=== PATIENT | female | born 1975 | race Caucasian/White ===

== ENCOUNTER → 2019-07-30 | Outpatient (CLI) | payer OTHER ==
--- NOTE | 2019-07-30 09:16 | Diagnostic Imaging Report ---
PROCEDURE: MRI lumbar spine. TECHNIQUE: Multiplanar, multisequence MRI of the lumbar spine was performed without contrast. INDICATION: Back pain, left flank pain, lumbar statures are normal. The marrow signal intensity unremarkable. There are bilateral S1 and S2 perineural sacral foraminal cysts. Lumbar marrow signal intensity normal. Pedicles and pars intact. No fracture. The L4-L5 disc shows desiccation stature loss and broad-based bulging posteriorly indenting the ventral thecal sac but resulting in only mild canal stenosis. The disc material is asymmetric to the right and results in mild to moderate right and slight left foraminal stenosis. The lateral recesses revealed no impingement. The discs at the remaining levels are all well-hydrated and nondisplaced, the spinal canal and neural foramina and lateral recesses otherwise widely patent. IMPRESSION: 1. Desiccated bulging disc at L4-L5 results in mild canal, mild left foraminal and moderate right foraminal stenosis. 2. Normal alignment with no acute bony pathology. 3. Chronic-appearing sacral perineural cysts. Dictated by: Dictated on workstation # [id number]
== END ==
LOC: RAD 08:28
PROVIDERS: ATTEND Chiropractor
DX: M48.061 Spinal stenosis, lumbar region without neurogenic claudication (principal); M54.17 Radiculopathy, lumbosacral region; M85.68 Other cyst of bone, other site
CPT/HCPCS: 72148

== ENCOUNTER → 2020-08-05 | Outpatient (CLI) | payer OTHER ==
--- NOTE | 2020-08-05 17:51 | Diagnostic Imaging Report ---
INDICATION: Lifting injury with back pain. COMPARISON: Correlated with overlapped images from a lumbar MR dated 07/30/2019. No previous for direct comparison. FINDINGS: Thoracic spinal cord has a normal volume and normal morphology and a normal signal intensity. CSF circumscribes the thoracic cord at each vertebral body and disc space level. The thoracic canal is widely patent throughout. The bilateral neural foramen are widely patent. The vertebral statures are normal. The alignment anatomic. The marrow signal intensity is normal. There is no disc displacement or herniation. The neural foramina is bilaterally widely patent. Facet relationships normal. The pedicles appear intact. The ligaments intact. No paraspinal mass, hemorrhage or fluid collection. IMPRESSION: Normal MRI appearance of the anatomically aligned thoracic spine with normal cord and no stenosis or acute abnormality. Dictated by: Dictated on workstation # [id number]
== END ==
LOC: RAD 14:30
PROVIDERS: ATTEND Chiropractor
DX: M54.5 Low back pain (principal)
CPT/HCPCS: 72146